=== PATIENT | male | born 1990 | race Caucasian/White ===

== ENCOUNTER 2018-02-03 14:49 | Emergency (ER) | payer OTHER ==
[2018-02-03 14:49] VITALS: BMI 28.2
[2018-02-03 15:01] VITALS: BP 113/79; PULSE 88; RESP 16; TEMP 98.3; O2SAT 100
--- NOTE | 2018-02-03 15:37 | RAD ---
Date of service: 02/03/2018 PROCEDURE: Radiographs of the Left Shoulder HISTORY: trauma COMPARISON: Left shoulder radiographs 02/13/2016. FINDINGS: BONES: No acute fracture or destructive bony lesion identified. A small solitary orthopedic anchor is identified at the left humeral head in the interval however. JOINTS: No dislocation or subluxation identified. Glenohumeral and acromioclavicular joints preserved. No osteoarthritis. SOFT TISSUES: Normal. OTHER FINDINGS: None. IMPRESSION: No acute fracture or destructive bony lesion. No dislocation or subluxation identified. A solitary interval orthopedic anchor is identified at the left humeral head.
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
== END 2018-02-03 16:22 | disposition home or self-care (01) ==
LOC: H.ER 14:49 → EDBD 14:49 → H.ER 16:22
DX: S49.92XA Unspecified injury of left shoulder and upper arm, initial encounter (principal); V43.52XA Car driver injured in collision with other type car in traffic accident, initial encounter; Y92.410 Unspecified street and highway as the place of occurrence of the external cause